=== PATIENT | female | born 1960 | race Caucasian/White ===

== ENCOUNTER 2024-04-14 20:00 | Emergency (ER) | payer MEDICARE, SELFPAY ==
[2024-04-14] VITALS (8 sets, daily range): BP systolic 91–110; BP diastolic 50–69
--- NOTE | 2024-04-14 21:04 | ED.GENMED ---
History of Present Illness
General
Chief Complaint: Fainting Sensation
Source: patient and ambulance crew
Exam Limitations: none
Time Seen by Provider: 04/14/24 20:45
Nursing documentation reviewed up to this point in time: agreed with
History of Present Illness
History of Present Illness:
64-year-old female from the [facility] was in the local area for festival today did not drink a lot of fluids had 3 edible Gummies for her knee pain earlier in the day had some wine at dinner proceeded to get dizzy with nausea and vomiting, EMS
was called given some fluids and Zofran no chest pain or shortness of breath, does have a history of Crohn's, has used Gummies before never had this reaction she did get the med a new store
Past History
Past History
ED Past Medical History: Other (Crohn's)
Social History
Tobacco: Non-smoker
Alcohol: Occasional
Drug: Marijuana
Personal:
Living: with family
Review of Systems
Review of Systems
All Other Systems: Not applicable
Constitutional: Denies fever or fatigue
EENT: Reports no symptoms
Respiratory: Denies cough or trouble breathing
ABD/GI: Reports nausea and vomiting; Denies abdominal pain
: Reports no symptoms
Neurological: Reports dizzy and weakness
Hematologic/Lymphatic: Reports no symptoms
Psychiatric: Reports no symptoms
Phy Exam
Physical Exam
Physical Exam:
Physical Exam
General: 64 female looks uncomfortable normal mental status blood pressure in the 90s
Neck: Dry membranes
Heart: Regular
Lungs: no acute respiratory distress. clear bilaterally
Abdomen: Obese not
Neuro: alert and oriented. no focal neurological deficits
Skin: no rash
Psychiatric: well kept. interactive and cooperative
Extremities: no edema. no calf tenderness.
Course
Orders/Labs/Results
Orders:
Orders
04/14/24 20:11
EKG [Electrocardiogram (*1)] Urgent
Reason for Study: Syncope
04/14/24 20:12
EKG- Treatment ONCE
04/14/24 21:03
Cardiac Monitoring- Treatment ONCE
0.9% Sodium Chloride 1000 ml [Nss] 1,000 ml IV BOLUS
Ondansetron Injectable [Zofran] 4 mg IV NOW STA
Pantoprazole [Protonix] 40 mg PO NOW STA
04/14/24 21:11
Complete Blood Count/With Diff Urgent
Comprehensive Metabolic Panel Urgent
Troponin I Urgent
04/14/24 21:23
Pantoprazole [Protonix IV] 40 mg IV NOW STA
04/14/24 22:42
0.9% Sodium Chloride 1000 ml [Nss] 1,000 ml IV BOLUS
Abnormal Lab Results
04/14/24
21:11
RBC 4.10 L 10^6/uL
(4.20-5.40)
MCH 31.5 H pg
(27.0-31.0)
Absolute Lymphs (auto) 3.5 H 10^3/uL
(1.2-3.4)
Absolute Monos (auto) 0.9 H 10^3/uL
(0.1-0.6)
Neutrophils % 37.9 L %
(42.2-75.2)
Monocytes % 11.8 H %
(1.7-9.3)
Sodium 133 L mmol/L
(135-145)
BUN 20 H mg/dl
(7-17)
Glucose 107 H mg/dl
(70-99)
04/14/24 21:11
04/14/24 21:11
Vital Signs
Initial and Last Documented VS:
Initial Vital Signs
BP
110/65
04/14/24 20:06
Last Documented Vital Signs
Temp Pulse Resp BP Pulse Ox
98.0 F 81 17 101/50 95
04/14/24 20:13 04/14/24 22:15 04/14/24 22:15 04/14/24 22:00 04/14/24 22:56
MDM/Problems Addressed
Differential Diagnosis Includes:
Dehydration electrolyte abnormality environmental doubt ACS plus minus toxicologic Gummies
MDM/Problems Addressed:
Dizziness nausea vomit
Chronic conditions affecting care:
Crohn's
Acute Exacerbation and/or Progression of Chronic Illness:
Crohn
*Pulse Oximetry
Patient hypoxic: no
*EKG
Interpreted by ED Provider?: Yes
Interpretation: abnormal
Comparison EKG: no comparison EKG present
Heart Rate: 78
Rate: normal
Rhythm: sinus
Ischemia: non-specific ST changes
*Physical Therapy Supervisor Interpretation
Rate: normal
Interpretation: normal
Heart Rate: 78
Rhythm: sinus
*Critical Care Note
Total Time (30-74mins, 75-104mins- exclusive of procedures): Not Applicable
Update Note
Update Note:
Will hydrate give Zofran PPI cardiac monitoring see how she responds
1130 patient feeling better vital signs of normalized abdomen is soft she is taking ice chips encouraged to limit her gummy use in the drink plenty of fluids
ED Attending Note
-
Portions of this chart may have been created with voice recognition software.� Occasional wrong word or��sound alike� substitutions may have occurred due to the inherent limitations of voice recognition software.
Discharge Plan
Departure
Patient Disposition: Home (Routine Discharge)
Date of Disposition: 04/14/24
Time of Disposition: 23:30
Patient with high blood pressure during this ER visit?: No
Condition: Good
Discharge Problem:
Dehydration
Instructions: Dehydration, Adult ED
Referrals:
NONE,* [Family Provider] -
Interventions
Interventions:
*Risk Screen - Suicide Last Done: 04/14/24 20:22
*General Assessment Last Done: 04/14/24 20:22
*Neglect/Abuse Screening Last Done: 04/14/24 20:22
*ED COVID-19 Vaccine History Last Done: 04/14/24 20:22
Discharge Date and Time
Print Language: ETHIOPIAN
[2024-04-14] MEDS: ZOFRAN 4 MG IV (21:09)
[2024-04-14] MEDS: NSS 1000 IV ×2 (21:09→22:47)
[2024-04-14 21:20] LABS: % Basophils 0.4 % (0-2); % Eosinophils 1.8 % (0-6); % Immature Granulocytes 0.1 % (0-0.5); % Monocytes 11.8 % (1.7-9.3); % Neutrophils 37.9 % (42.2-75.2); Absolute Eosinophils 0.1 10^3/uL (0-0.7); Absolute Lymphocytes 3.5 10^3/uL (1.2-3.4); Absolute Monocytes 0.9 10^3/uL (0.1-0.6); Absolute Neutrophils 2.8 10^3/uL (1.4-6.5); Hematocrit 37.1 % (37.0-47.0); Hemoglobin 12.9 g/dL (12.0-16.0); Mean Corp Hgb Conc. 34.8 g/dL (33.0-37.0); Mean Corpuscular Hgb 31.5 pg (27.0-31.0); Mean Corpuscular Volume 90.5 fL (81.0-99.0); Mean Platelet Volume 10.2 fL (7.4-10.4); Nucleated Red Blood Cells % 0 %; Platelet Count 263 10^3/uL (130-400); White Blood Cell Count 7.4 10^3/uL (4.8-10.8)
[2024-04-14] MEDS: PROTONIX IV 40 MG IV (21:25)
[2024-04-14 21:32] LABS: ALT (SGPT) 26 U/L (0-35); AST (SGOT) 33 U/L (14-36); Albumin 3.9 g/dl (3.5-5.0); Alkaline Phosphatase 63 U/L (38-126); Blood Urea Nitrogen 20 mg/dl (7-17); Calcium 9.4 mg/dl (8.4-10.2); Carbon Dioxide 22 mmol/L (22-30); Chloride 103 mmol/L (98-107); Glucose 107 mg/dl (70-99); Potassium 3.9 mmol/L (3.5-5.1); Sodium 133 mmol/L (135-145); Total Bilirubin 0.6 mg/dl (0.2-1.3); Total Protein 7.1 g/dl (6.3-8.2); eGFR > 60.00
[2024-04-14 21:45] LABS: Troponin I < 0.012 ng/ml
== END 2024-04-15 01:03 | disposition home or self-care (01) ==
LOC: EMR 20:00
PROVIDERS: EMERGENCY PHYSICIAN Emergency Medicine
DX: E86.0 Dehydration (principal)
CPT/HCPCS: 99284; 96374; 96375; 96361 ×2; 80053; 84484; 85025; 93005